=== PATIENT | male | born 1945 | race Caucasian/White ===

== ENCOUNTER 2022-09-18 12:06 | Emergency (ER) | payer OTHER ==
[2022-09-18 12:27] LABS: Absolute Lymphocytes (CBC) 1.9 K/uL (0.7-4.9); Hematocrit 32.7 % (39.6-49.0); Lymphocytes % 6.2 % (15.3-44.8); RBC Red Blood Cell Count 4.19 M/uL (4.33-5.43)
[2022-09-18 12:45] LABS: Albumin 2.9 g/dL (3.4-5.0); Bilirubin Total 0.4 mg/dL (0.2-1.0); Protein, Total 7.4 g/dL (6.4-8.2)
--- NOTE | 2022-09-18 12:50 | RAD REPORT ---
EXAM DESCRIPTION: US - Abdomen Exam Limited - 09/18/2022 12:41 pm CLINICAL HISTORY: RUQ pain COMPARISON: No comparisons FINDINGS: The gallbladder demonstrates suspected small gallstone. No pericholecystic fluid or gallbl adder wall thickening. The common bile duct is normal measuring 2 mm.. The liver demonstrates no findings of intrahepatic biliary dilatation. Heterogenous mass lesion in the right upper quadrant is of unclear etiology the could be from the luis er right kidney. CT is recommended. IMPRESSION: Small gallstone in gallbladder. No evidence of acute cholecystitis. Incompletely imaged mass in the right upper quadrant, CT is recommended.
[2022-09-18 13:24] LABS: Specific Gravity 1.026 (1.005-1.030); Urine Bilirubin NEGATIVE (Negative); Urine Blood Negative (Negative); Urine Clarity Clear (Clear); Urine Color Yellow (Yellow); Urine Glucose NEGATIVE (Negative); Urine Protein NEGATIVE (Negative); Urine Urobilinogen 1+ (Normal)
--- NOTE | 2022-09-18 13:42 | RAD REPORT ---
EXAM DESCRIPTION: CTAbdomen Pelvis W Contrast - 09/18/2022 1:26 pm CLINICAL HISTORY: Abdominal pain. ABD PAIN COMPARISON: No comparisons TECHNIQUE: Biphasic CT imaging of the abdomen and pelvis was performed with 100 ml non-ionic IV cont rast. All CT scans are performed using dose optimization technique as appropriate and may include automated exposure control or mA/KV adjustment according to patient size. FINDINGS: Several nodules are present in the lung bases. There is a large 4.5 cm mass with periphera l calcification asymmetrically present in the medial left base maximum measuring 4.5 x 5 cm. Small le ft pleural effusion. Small low-density lesions throughout the liver likely cysts. There is a mildly enhancing lesion in th e right lobe measuring 14 mm which is nonspecific. There is a very large irregular mass emanating from the right kidney anterior aspect. The mass appear s to involve the right renal pelvis and anterior superior aspect of the right kidney. The tumor mass maximally measures approximately 12 x 9 cm headache contains cystic, solid and calcific components. T he abnormal tumor soft tissue is seen to extend into the right renal pelvis and proximal right ureter with expansion of the proximal right ureter noted. A component of the mass is noted medially superiorly measuring 3.2 cm 10 abutting but not invading th e inferior vena cava. Currently, there is no definitive evidence of extension into the vena cava of t his tumor. The spleen, pancreas, adrenal glands and left kidney are within normal limits. Several mildly enlarg ed lymph nodes are seen para-aortic and retroperitoneal location. No ascites. No soft tissue implant s or omental carcinomatosis. Moderate retained stool throughout the colon. No lytic or blastic bone lesion. IMPRESSION: Very large mass involving the right kidney as detailed. There is tumor noted to extend i nto the right renal pelvis and into the proximal right ureter with dilatation. This pattern favors tr ansitional cell carcinoma although renal cell carcinoma is also possible. Multiple lesions in the zandra gs, including large 4.5 cm medial left base mass likely representing metastatic disease. Multiple metastatic lymph nodes in the retroperitoneum/para-aortic region suspected. Vague enhancing right lobe liver lesion could be benign or a metastatic deposit. Follow-up nonemergen t MRI liver protocol assessment would be recommended
[2022-09-18] MEDS ORDERED: NA CHLORIDE 0.9% 1,000 ML ONE (14:54)
[2022-09-18] MEDS ORDERED: NA CHLORIDE 0.9% 100 ML ONE (14:54)
[2022-09-18] MEDS ORDERED: PIPERACIL/TAZO 3.375 GM VIAL IV ONE (14:54)
--- NOTE | 2022-09-18 15:20 | EDPHYS ---
Physician Documentation [facility] Name: Ady Boss Age: 77 yrs Sex: Male : 1945 Arrival Date: 09/18/2022 Time: 12:06 Bed 6 Private MD: ED Physician Soy Isaac HPI: 09/18 14:52 This 77 yrs old Male presents to ER via EMS with complaints of Abdominal Pain. rt 14:52 Patient presents to the ED with right upper quadrant pain for about 1 month. The pain rt worsened today prompting come to the ED for further evaluation. Denies nausea, vomiting. Denies aggravating or alleviating factors. Symptoms are moderate in severity, nonradiating, no other associated symptoms.. Historical: - Allergies: 13:17 No Known Allergies; iw - Immunization history:: Adult Immunizations unknown. - Family history:: not pertinent. - Social history:: Smoking status: unknown. ROS: 14:52 Constitutional: Negative for fever, chills, and weight loss, Cardiovascular: Negative rt for chest pain, palpitations, and edema, Respiratory: Negative for shortness of breath, cough, wheezing, and pleuritic chest pain, Back: Negative for injury and pain, MS/Extremity: Negative for injury and deformity, Skin: Negative for injury, rash, and discoloration, Neuro: Negative for headache, weakness, numbness, tingling, and seizure, Psych: Negative for depression, anxiety, suicide ideation, homicidal ideation, and hallucinations. 14:52 Abdomen/GI: Positive for abdominal pain, Negative for nausea and vomiting. Exam: 14:52 Constitutional: This is a well developed, well nourished patient who is awake, alert, rt and in no acute distress. Head/Face: Normocephalic, atraumatic. Chest/axilla: Normal chest wall appearance and motion. Nontender with no deformity. No lesions are appreciated. Cardiovascular: Regular rate and rhythm with a normal S1 and S2. No gallops, murmurs, or rubs. Normal PMI, no JVD. No pulse deficits. Respiratory: Lungs have equal breath sounds bilaterally, clear to auscultation and percussion. No rales, rhonchi or wheezes noted. No increased work of breathing, no retractions or nasal flaring. Skin: Warm, dry with normal turgor. Normal color with no rashes, no lesions, and no evidence of cellulitis. MS/ Extremity: Pulses equal, no cyanosis. Neurovascular intact. Full, normal range of motion. Neuro: Awake and alert, GCS 15, oriented to person, place, time, and situation. Cranial nerves II-XII grossly intact. Motor strength 5/5 in all extremities. Sensory grossly intact. Cerebellar exam normal. Normal gait. Psych: Awake, alert, with orientation to person, place and time. Behavior, mood, and affect are within normal limits. 14:52 Abdomen/GI: Tenderness to the right upper quadrant without rebound, guarding, distention. 14:52 ECG was reviewed by the Attending Physician. rt Vital Signs: 12:12 BP 175 / 83; Pulse 78; Resp 16; Temp 98.1; Pulse Ox 98% on R/A; iw 13:16 BP 156 / 74; Pulse 69; Resp 18; Pulse Ox 97% on R/A; ph 15:58 BP 149 / 71; Pulse 69; Resp 18; Pulse Ox 98% on R/A; mb9 18:00 BP 142 / 67; Pulse 69; Resp 16; Pulse Ox 100% on R/A; mb9 18:52 BP 144 / 67; Pulse 67; Resp 18; Pulse Ox 98% on R/A; ph MDM: 12:19 Patient medically screened. rt 18:30 Differential diagnosis: UTI, cholecystitis, pyelonephritis, renal abscess. Data rt reviewed: vital signs, nurses notes, lab test result(s), EKG, radiologic studies. Consideration of Admission/Observation Patient was admitted/placed on observation. Management of patient was discussed with the following: Incubator Operator: Discussed with accepting physician at [facility]. I considered the following discharge prescriptions or medication management in the emergency department Medications were administered in the Emergency Department. See MAR. Independent interpretation of the following test(s) in the Emergency Department CT Scan: My interpretation is Renal mass seen on my interpretation of the CT scan images. Counseling: I had a detailed discussion with the patient and/or guardian regarding: the historical points, exam findings, and any diagnostic results supporting the discharge/admit diagnosis, lab results, radiology results, the need to transfer to another facility. 09/19 10:05 ED course: Clarification, patient is an inmate in the [employer] [facility] system, therefore, sent to rt [facility] for correctional manage care. 09/18 12:11 Order name: CBC with Diff; Complete Time: 12:48 rt 09/18 12:11 Order name: CMP; Complete Time: 12:48 rt 09/18 12:11 Order name: Lipase; Complete Time: 12:48 rt 09/18 12:11 Order name: Urinalysis w/ reflexes; Complete Time: 13:29 rt 09/18 14:21 Order name: Blood Culture Adult (2) rt 09/18 14:21 Order name: Lactate w/ 2H reflex if indic.; Complete Time: 16:56 rt 09/18 14:21 Order name: Protime (+inr); Complete Time: 16:56 rt 09/18 14:21 Order name: Ptt, Activated; Complete Time: 16:56 rt 09/18 12:11 Order name: Abdomen Limited US; Complete Time: 13:29 rt 09/18 12:11 Order name: CT Abd/Pelvis - IV Contrast Only; Complete Time: 13:44 rt 09/18 14:21 Order name: EKG; Complete Time: 14:22 rt 09/18 12:11 Order name: IV Saline Lock; Complete Time: 12:22 rt 09/18 12:11 Order name: Labs collected and sent; Complete Time: 12:22 rt 09/18 14:21 Order name: Accucheck; Complete Time: 14:43 rt 09/18 14:21 Order name: Cardiac monitoring; Complete Time: 14:43 rt 09/18 14:21 Order name: EKG - Nurse/Tech; Complete Time: 15:54 rt 09/18 14:21 Order name: IV Saline Lock - Large Bore; Complete Time: 14:43 rt 09/18 14:21 Order name: O2 Per Protocol; Complete Time: 14:24 rt 09/18 14:21 Order name: O2 Sat Monitoring; Complete Time: 14:24 rt 09/18 14:21 Order name: Vital Signs; Complete Time: 14:24 rt EC/13 14:52 Rate is 73 beats/min. Rhythm is regular, Normal Sinus Rhythm with No ectopy. QRS [place] rt is Normal. WA interval is normal. QRS interval is normal. QT interval is normal. No Q waves. T waves are Normal. No ST changes noted. Interpreted by me. Administered Medications: 14:32 Drug: Piperacillin-Tazobactam IVPB 3.375 grams Route: IVPB; Infused Over: 60 mins; mb9 Site: left antecubital; 15:54 Follow up: Response: No adverse reaction mb9 15:54 Follow up: Response: No adverse reaction mb9 19:20 Follow up: Response: No adverse reaction; IV Status: Completed infusion rv 14:32 Drug: NS 0.9% IV 1000 ml Route: IV; Rate: 1 bolus; Site: left antecubital; mb9 15:54 Follow up: Response: No adverse reaction; IV Status: Completed infusion mb9 Disposition Summary: 09/18/22 15:19 Transfer Ordered Transfer Location: [facility] rt Reason: Higher level of care rt Condition: Fair rt Problem: new rt Symptoms: are unchanged rt Accepting Physician: Cedrick(09/18/22 19:20) rv Diagnosis - Renal mass rt - Acute kidney injury rt - Leukocytosis rt Forms: - Medication Reconciliation Form rt - SBAR form rt Signatures: Dispatcher [employer] EDClair Murrieta RN RN iw Antonella Saenz RN Jose Enrique Hubbard ph, RN RN rv Jessenia Martinez RN RN Soy Brown MD MD rt Corrections: (The following items were deleted from the chart) 19:20 15:19 Cedrick rt rv
--- NOTE | 2022-09-18 15:20 | ER ---
Nurse's Notes [facility] Name: Ady Boss Age: 77 yrs Sex: Male : 1945 Arrival Date: 09/18/2022 Time: 12:06 Bed 6 Private MD: Diagnosis: Renal mass;Acute kidney injury;Leukocytosis Presentation: 09/18 12:08 Chief complaint: Patient states: RUQ pain X 1 month, getting worse. Coronavirus screen: iw At this time, the client does not indicate any symptoms associated with coronavirus-19. Ebola Screen: Patient negative for fever greater than or equal to 101.5 degrees Fahrenheit, and additional compatible Ebola Virus Disease symptoms Patient denies exposure to infectious person. Patient denies travel to an Ebola-affected area in the 21 days before illness onset. No symptoms or risks identified at this time. Initial Sepsis Screen: Does the patient meet any 2 criteria? No. Patient's initial sepsis screen is negative. Does the patient have a suspected source of infection? No. Patient's initial sepsis screen is negative. Risk Assessment: Do you want to hurt yourself or someone else? Patient reports no desire to harm self or others. Onset of symptoms was August 2022. 12:08 Method Of Arrival: EMS: [facility] iw 12:08 Acuity: YEHUDA 3 iw 12:22 Care prior to arrival: IV initiated. 20 GA, in the left antecubital area. iw Triage Assessment: 13:33 General: Appears in no apparent distress. db Historical: - Allergies: 13:17 No Known Allergies; iw - Immunization history:: Adult Immunizations unknown. - Family history:: not pertinent. - Social history:: Smoking status: unknown. Screenin:47 [facility] ED Fall Risk Assessment (Adult) History of falling in the last 3 months, iw including since admission Score/Fall Risk Level 0 - 2 = Low Risk. Abuse screen: Denies threats or abuse. Denies injuries from another. Nutritional screening: No deficits noted. Tuberculosis screening: No symptoms or risk factors identified. Assessment: 12:08 General: Appears in no apparent distress. Behavior is calm, cooperative. Pain: iw Complains of pain in right upper quadrant and right lower quadrant. Neuro: Level of Consciousness is awake, alert, obeys commands, Oriented to person, place, time, situation, Moves all extremities. Full function. Cardiovascular: Patient's skin is warm and dry. GI: Abdomen is flat, non-distended, Abd is soft X 4 quads Abdomen is tender to palpation in right upper quadrant Patient currently denies nausea, vomiting. Derm: Skin is intact, is healthy with good turgor. 13:08 Reassessment: Patient appears in no apparent distress at this time. Patient and/or iw family updated on plan of care and expected duration. Pain level reassessed. Patient is alert, oriented x 3, equal unlabored respirations, skin warm/dry/pink. [employer] GUARD WITH PATIENT. 15:58 Reassessment: No changes from previously documented assessment. Patient and/or family mb9 updated on plan of care and expected duration. Pain level reassessed. Patient is alert, oriented x 3, equal unlabored respirations, skin warm/dry/pink. 18:00 Reassessment: No changes from previously documented assessment. Patient and/or family mb9 updated on plan of care and expected duration. Pain level reassessed. Patient is alert, oriented x 3, equal unlabored respirations, skin warm/dry/pink. 18:53 Reassessment: Patient appears in no apparent distress at this time. Patient and/or ph family updated on plan of care and expected duration. Pain level reassessed. Patient is alert, oriented x 3, equal unlabored respirations, skin warm/dry/pink. Vital Signs: 12:12 BP 175 / 83; Pulse 78; Resp 16; Temp 98.1; Pulse Ox 98% on R/A; iw 13:16 BP 156 / 74; Pulse 69; Resp 18; Pulse Ox 97% on R/A; ph 15:58 BP 149 / 71; Pulse 69; Resp 18; Pulse Ox 98% on R/A; mb9 18:00 BP 142 / 67; Pulse 69; Resp 16; Pulse Ox 100% on R/A; mb9 18:52 BP 144 / 67; Pulse 67; Resp 18; Pulse Ox 98% on R/A; ph ED Course: 12:08 Patient arrived in ED. iw 12:09 Triage completed. iw 12:09 Arm band placed on. iw 12:10 Soy Isaac MD is Attending Physician. rt 12:22 Initial lab(s) drawn, by me, sent to lab. Maintain EMS IV. Dressing intact. Good blood iw return noted. Site clean \T\ dry. Gauge \T\ site: 20 LAC. 12:43 Abdomen Limited US In Process Unspecified. EDMS 12:56 Tram Mcdonough, RN is Primary Nurse. db 13:11 Urinalysis w/ reflexes Sent. iw 13:28 CT Abd/Pelvis - IV Contrast Only In Process Unspecified. EDMS 13:39 Report received from BETSY Ugalde. mb9 14:30 EKG done, by ED staff, reviewed by Soy Isaac MD. mb9 16:01 Jessenia Martinez, BETSY is Primary Nurse. mb9 16:01 No provider procedures requiring assistance completed. Patient transferred, IV remains mb9 in place. 18:53 Patient has correct armband on for positive identification. Bed in low position. Call ph light in reach. Side rails up X2. 19:19 Provided Education on: GI infection, antibiotic. rv Administered Medications: 14:32 Drug: Piperacillin-Tazobactam IVPB 3.375 grams Route: IVPB; Infused Over: 60 mins; mb9 Site: left antecubital; 15:54 Follow up: Response: No adverse reaction mb9 15:54 Follow up: Response: No adverse reaction mb9 19:20 Follow up: Response: No adverse reaction; IV Status: Completed infusion rv 14:32 Drug: NS 0.9% IV 1000 ml Route: IV; Rate: 1 bolus; Site: left antecubital; mb9 15:54 Follow up: Response: No adverse reaction; IV Status: Completed infusion mb9 Medication: 12:47 VIS not applicable for this client. iw Outcome: 15:19 ER care complete, transfer ordered by . rt 16:01 Transferred by ground EMS to [facility], Transfer form mb9 completed. X-rays sent w/ patient. Note: Report given to BETSY SANCHEZ 16:01 Condition: stable 16:01 Instructed on the need for transfer. 19:20 Patient left the ED. rv Signatures: Dispatcher [employer] EDMS Clair Akins RN RN iw Hall, Patricia RN Jose Enrique Hubbard ph, RN RN rv Tram Mcdonough, Jessenia Ventura RN, RN RN mb9 [place], Ryan, MD MD rt Corrections: (The following items were deleted from the chart) 13:34 13:33 Musculoskeletal: Swelling db db
[2022-09-18 15:29] LABS: Protime INR 1.14
[2022-09-18 19:26] VITALS: TEMP 98.1
[2022-09-18 19:33] VITALS: BP 144/67; O2SAT 98
--- NOTE | 2022-09-22 11:55 | EKG ---
Test Date: 2022-09-18 Test Time: 14:47:33 Coding Team Lead: YOSVANY MEASUREMENT RESULTS: Intervals: Rate: 73 NC: 158 QRSD: 88 QT: 406 QTc: 447 [place]: P: 50 NC: 158 QRS: -24 T: 68 INTERPRETIVE STATEMENTS: Normal sinus rhythm Normal ECG No previous ECG available for comparison Electronically Signed On 09-22-22 11:48:22 CDT by Ludin Sosa
== END 2022-09-18 19:20 | disposition short-term general hospital (02) ==
LOC: ER 12:06
DX: N17.9 Acute kidney failure, unspecified (principal); N28.89 Other specified disorders of kidney and ureter; D72.829 Elevated white blood cell count, unspecified
CPT/HCPCS: 96365; 93005; 87040 ×2; 85025; 36415; 85610; 83605; 85730; 81003; 83690; 80053; 74177; 76705; 99285; 96366; Q9967; J2543; J7030